=== PATIENT | male | born 1995 | race Caucasian/White ===

== ENCOUNTER 2023-12-13 12:05 | Emergency (ER) | payer SELFPAY ==
[~2023-12-13] VITALS: Ht 180.3 cm; Wt 104.5 kg
[2023-12-13 12:09] VITALS: TEMP 98.3
[2023-12-13] MEDS ORDERED: Ondansetron 4 MG/2 ML VIAL IV ONE (12:45)
[2023-12-13] MEDS ORDERED: Morphine 4 MG/ML VIAL IV ONE (12:45)
[2023-12-13] MEDS ORDERED: MOTRIN 800800 MG/TAB PO (12:47)
[2023-12-13] MEDS ORDERED: PERCOCET 325 MG1 TA2 PO (12:47)
[2023-12-13 13:24] VITALS: BP 138/104; PULSE 106
== END 2023-12-13 13:24 | disposition home or self-care (01) ==
LOC: COL.ER 12:05
DX: R07.89 Other chest pain (principal)
CPT/HCPCS: J2270; J2405